=== PATIENT | female | born 1995 | race Caucasian/White ===

== ENCOUNTER 2018-06-13 14:57 | Emergency (ER) | payer BC ==
[2018-06-13] MEDS: IBUPROFEN 200 MG TAB PO (18:19)
== END 2018-06-13 20:16 | disposition home or self-care (01) ==
LOC: FTE 14:57
DX: M54.2 Cervicalgia (principal); M54.5 Low back pain; M25.512 Pain in left shoulder; E11.9 Type 2 diabetes mellitus without complications
CPT/HCPCS: 72040; 72100; 73060; 81025; 82962; 99284-25